=== PATIENT | female | born 1960 | race Caucasian/White ===

== ENCOUNTER → 2017-12-12 | Outpatient (CLI) | payer OTHER ==
--- NOTE | 2017-12-12 09:17 | US ---
EXAMINATION TYPE: US transvaginal DATE OF EXAM: 12/12/2017 COMPARISON: NONE CLINICAL HISTORY: Z78.0Asymptomatic menopause,N93.9Abnormal uterine and vaginal b; patient stated dominguez d May menses, then one this October lasting 16 days with heavy clotting; then off for couple days, a nother heavy menstrual cycle for 15 days; , C section x 2 TECHNIQUE: Transvaginal (TV) per order. Date of LMP: November 2017 EXAM MEASUREMENTS: Uterus: 8.5 x 5.1 x 4.8 cm Endometrial Stripe: 3.3 cm Right Ovary: 2.7 x 1.5 x 1.8 cm Left Ovary: 2.0 x 1.4 x 2.2 cm 1. Uterus: Anteverted; multiple Nabothian cysts in cervix with largest = 0.6 x 0.5 x 0.3cm 2. Endometrium: abnormally thickened, heterogeneous appearance with indiscreet borders; cyst noted u pper endometrium; possible oval mass within = 1.8 x 1.9 x 1.8cm. 3. Right Ovary: follicle noted = 0.95 x 0.54 x 0.63cm 4. Left Ovary: wnl Spectral, color and waveform doppler imaging shows good arterial and venous flow within the ovaries ;. 5. Bilateral Adnexa: wnl 6. Posterior cul-de-sac: wnl A few tiny nabothian cysts are seen in the cervix on initial images as well as near image 14. Heterog eneous anteverted uterus is present. Endometrium is not well seen but is suspected heterogeneously sl ightly hyperechoic and vascular. IMPRESSION: Suboptimal study, marked heterogeneity of uterus, suspected thickening of endometrium tho ugh it is poorly defined. Consider further investigation based on patient's clinical symptoms.
--- NOTE | 2017-12-14 11:59 | MM ---
Reason for exam: screening (asymptomatic). Last mammogram was performed 1 year and 7 months ago. History: Family history of breast cancer in mother. Physical Findings: A clinical breast exam by your physician is recommended on an annual basis and results should be correlated with mammographic findings. MG Screening Mammo w CAD Bilateral CC and MLO view(s) were taken. Prior study comparison: July 26, 2006, bilateral screening mammogram w/CAD. April 26, 2004, bilateral screening mammogram. The breast tissue is heterogeneously dense. This may lower the sensitivity of mammography. No significant changes when compared with prior studies. ASSESSMENT: Benign, BI-RAD 2 RECOMMENDATION: Routine screening mammogram of both breasts in 1 year.
== END | disposition home or self-care (01) ==
LOC: RADMAMWWP 07:48
PROVIDERS: ATTEND Family Medicine
DX: Z12.31 Encounter for screening mammogram for malignant neoplasm of breast (principal); R93.8 Abnormal findings on diagnostic imaging of other specified body structures; N93.9 Abnormal uterine and vaginal bleeding, unspecified; Z78.0 Asymptomatic menopausal state
CPT/HCPCS: 76830; 77067

== ENCOUNTER → 2018-01-23 | Outpatient (CLI) | payer OTHER ==
[2018-01-23 17:04] LABS: Basophils # (A) 0.1 k/uL (0-0.2); Basophils % (A) 1 %; Eosinophils # (A) 0.2 k/uL (0-0.7); Eosinophils % (A) 3 %; HCT 35.7 % (34.0-46.0); HGB 11.6 gm/dL (11.4-16.0); Lymphocytes # (A) 2.1 k/uL (1.0-4.8); Lymphocytes % (A) 25 %; MCHC 32.5 g/dL (31.0-37.0); MCV 86.2 fL (80.0-100.0); Mean Platelet Volume 7.3; Monocytes # (A) 0.4 k/uL (0-1.0); Monocytes % (A) 5 %; Neutrophils # (A) 5.2 k/uL (1.3-7.7); Neutrophils % (A) 63 %; Platelet Count 296 k/uL (150-450); RBC 4.15 m/uL (3.80-5.40); RDW 12.9 % (11.5-15.5); WBC 8.3 k/uL (3.8-10.6)
== END | disposition home or self-care (01) ==
LOC: LABPAT 16:03
PROVIDERS: ATTEND Obstetrics & Gynecology
DX: Z01.818 Encounter for other preprocedural examination (principal); Z01.812 Encounter for preprocedural laboratory examination
CPT/HCPCS: 36415; 85025; 93005

== ENCOUNTER 2018-01-30 10:46 | Day surgery (SDC) | payer OTHER ==
[2018-01-25 14:19] VITALS: BMI 46.0
--- NOTE | 2018-01-26 13:30 | P.HPOB ---
History of Present Illness H&P Date: 01/26/18 Chief Complaint: Postmenopausal bleeding She went is a 57-year-old female who has had 15-20 days of heavy bleeding over the last 4 months. She notes that she passes large clots and while she has not gone for an entire year without having a period her other symptoms are menopausal. She also has a grossly thickened endometrium measuring 3.3 cm. Risks/benefits of a D&C with hysteroscopy have discomfort been discussed with the patient in detail and all questions were answered for her prior to proceeding to the operating room. Past Medical History Past Medical History: Diabetes Mellitus, Hyperlipidemia, Hypertension, Thyroid Disorder Additional Past Medical History / Comment(s): RAPID HEART RATE-OCCASIONAL History of Any Multi-Drug Resistant Organisms: None Reported Past Surgical History: Section Additional Past Surgical History / Comment(s): C SECTON X 2 Past Anesthesia/Blood Transfusion Reactions: Motion Sickness Smoking Status: Never smoker - Past Family History Mother Family Medical History: No Reported History Medications and Allergies Home Medications Medication Instructions Recorded Confirmed Type ALPRAZolam [ALPRAZolam XR] 0.5 mg PO QID 01/25/18 01/25/18 History Atorvastatin Calcium [Lipitor] 10 mg PO HS 01/25/18 01/25/18 History Diltiazem HCl [Diltiazem ER] 240 mg PO 1000 01/25/18 01/25/18 History Gabapentin [Neurontin] 300 mg PO 1000 01/25/18 01/25/18 History HYDROcodone/APAP 10-325MG [[place] 1 tab PO Q8H PRN 01/25/18 01/25/18 History 10-325] Hydrochlorothiazide 25 mg PO BID 01/25/18 01/25/18 History Insulin Aspart [NovoLOG] 13 units SQ PC-TID 01/25/18 01/25/18 History Insulin Glargine,Hum.rec.anlog 22 unit SQ 1000,2200 01/25/18 01/25/18 History [Basaglar Kwikpen U-100] Levothyroxine Sodium [Synthroid] 88 mcg PO DAILY 01/25/18 01/25/18 History Losartan Potassium [Cozaar] 100 mg PO DAILY 01/25/18 01/25/18 History Vilazodone HCl [Viibryd] 10 mg PO DAILY 01/25/18 01/25/18 History diphenhydrAMINE [Benadryl] 25 mg PO BID PRN 01/25/18 01/25/18 History sitaGLIPtin PHOS/metFORMIN HCL 1 each PO BID 01/25/18 01/25/18 History [Janumet 50-500 mg Tablet] Allergies Allergy/AdvReac Type Severity Reaction Status Date / Time prednisone Allergy Anaphylaxis Verified 01/25/18 12:40 Quinolones Allergy Rash/Hives Verified 01/26/18 08:44 Exam Osteopathic Statement: *. No significant issues noted on an osteopathic structural exam other than those noted in the History and Physical/Consult. - OBG Physical Exam Breast: both: normal (no masses) Abdomen: Obese Abdomen: bowel sounds normal, no diffuse tenderness, no bruit present, no guarding noted, no hepatomegaly, no splenomegaly, no mass Vulva: both: normal Vagina: normal moisture, no discharge Cervix: no lesion, no discharge Uterus: normal size, normal contour Adnexa: both: normal Anus/Rectum: normal perianal skin, no rectal mass, no hemorrhoids, heme negative
[~2018-01-30 10:46] MED LIST: LACTATED RINGERS 1,000 ML IV SCH; MIDAZOLAM 2 MG/2 ML VIAL IV PRN; ONDANSETRON 4 MG/2 ML VIAL IVP ONE; Pre Op ABX Message 1 EACH MISC MISCELLANE ONE; SCOPOLAMINE 1.5MG/72HR PATCH TRANSDERM ONE; fentaNYL (PF) 50 MCG/ML 2 ML AMP IV PRN
[2018-01-30] MEDS ORDERED: LIDOCAINE 1% 20 ML VIAL (10MG/ML) FOR IV START INTRADERMA ONE (11:19)
[2018-01-30 11:28] LABS: Glucose,Whole Blood 274 mg/dL (75-99)
[2018-01-30] MEDS ORDERED: INSULIN ASPART 100 UNIT/ML 1 ML 10 ML VIAL SQ ONE ×2 (11:36→13:33)
[2018-01-30] MEDS ORDERED: PROPOFOL 10 MG/ML 20 ML VIAL IV ONE (12:34)
[2018-01-30] MEDS ORDERED: LIDOCAINE 1% INJ 10MG/ML (20 ML MDV) ONE (12:34)
[2018-01-30] MEDS ORDERED: fentaNYL (PF) 50 MCG/ML 2 ML AMP ONE (12:34)
[2018-01-30] MEDS ORDERED: SUCCINYLCHOLINE CHLORIDE VIAL 200 MG/10 ML VIAL IV ONE (12:34)
[2018-01-30] MEDS ORDERED: MIDAZOLAM 2 MG/2 ML VIAL ONE (12:34)
--- NOTE | 2018-01-30 13:00 | P.OP ---
Date of Procedure: 01/30/18 Preoperative Diagnosis: Dysfunctional uterine bleeding Postoperative Diagnosis: Same Procedure(s) Performed: D&C with hysteroscopy Anesthesia: OG Surgeon: Marlon Lopez Estimated Blood Loss (ml): 3 Pathology: other (Uterine curettings) Condition: stable Disposition: same day Operative Findings: No gross pathology was noted on hysteroscopy Description of Procedure: Patient was taken to the operating suite where a general anesthetic was found be adequate. She was prepped and draped in the normal sterile fashion and placed in dorsal lithotomy. Initially weighted speculum was inserted into the vagina and the anterior lip of the cervix was identified and grasped with an Allis clamp. Uterus was then sounded to 11 cm and cervix was dilated. Camera was inserted and no gross pathology was noted unclear why endometrium looks sick. Sharp curettings were then obtained all tissues collected, placed on Telfa, and then sent to pathology for evaluation. Sponge, lap, needle counts were all correct 2. All instruments were then removed and patient was taken to the recovery room in stable and satisfactory condition. Plan - Discharge Summary New Discharge Prescriptions: New Ibuprofen [Motrin] 600 mg PO Q6HR PRN #30 tab PRN Reason: Pain No Action diphenhydrAMINE [Benadryl] 25 mg PO BID PRN PRN Reason: Allergy Symptoms Vilazodone HCl [Viibryd] 10 mg PO DAILY Gabapentin [Neurontin] 300 mg PO 1000 Atorvastatin Calcium [Lipitor] 10 mg PO HS Losartan Potassium [Cozaar] 100 mg PO DAILY HYDROcodone/APAP 10-325MG [[place] 10-325] 1 tab PO Q8H PRN PRN Reason: Pain Hydrochlorothiazide 25 mg PO BID ALPRAZolam [ALPRAZolam XR] 0.5 mg PO QID Levothyroxine Sodium [Synthroid] 88 mcg PO DAILY Diltiazem HCl [Diltiazem ER] 240 mg PO 1000 sitaGLIPtin PHOS/metFORMIN HCL [Janumet 50-500 mg Tablet] 1 each PO BID Insulin Glargine,Hum.rec.anlog [Basaglar Kwikpen U-100] 22 unit SQ 1000,2200 Insulin Aspart [NovoLOG] 13 units SQ PC-TID Discharge Medication List ALPRAZolam [ALPRAZolam XR] 0.5 mg PO QID 01/25/18 [History] Atorvastatin Calcium [Lipitor] 10 mg PO HS 08/02/18 [History] Diltiazem HCl [Diltiazem ER] 240 mg PO 1000 01/25/18 [History] Gabapentin [Neurontin] 300 mg PO 1000 01/25/18 [History] HYDROcodone/APAP 10-325MG [[place] 10-325] 1 tab PO Q8H PRN 01/25/18 [History] Hydrochlorothiazide 25 mg PO BID 01/25/18 [History] Insulin Aspart [NovoLOG] 13 units SQ PC-TID 01/25/18 [History] Insulin Glargine,Hum.rec.anlog [Basaglar Kwikpen U-100] 22 unit SQ 1000,2200 08/13 [History] Levothyroxine Sodium [Synthroid] 88 mcg PO DAILY 01/25/18 [History] Losartan Potassium [Cozaar] 100 mg PO DAILY 01/25/18 [History] Vilazodone HCl [Viibryd] 10 mg PO DAILY 01/25/18 [History] diphenhydrAMINE [Benadryl] 25 mg PO BID PRN 01/25/18 [History] sitaGLIPtin PHOS/metFORMIN HCL [Janumet 50-500 mg Tablet] 1 each PO BID [History] Ibuprofen [Motrin] 600 mg PO Q6HR PRN #30 tab 01/30/18 [Rx] Follow up Appointment(s)/Referral(s): Marlon Lopez DO [Doctor of Osteopathic Medicine] - 1 Week Activity/Diet/Wound Care/Special Instructions: No heavy lifting today, limit stairs and driving and pelvic rest. If any high temperatures, heavy bleeding, or severe pain call my office Discharge Disposition: HOME SELF-CARE
[2018-01-30 13:17] VITALS: RESP 16; TEMP 96.9
[2018-01-30 13:30] LABS: Glucose,Whole Blood 215 mg/dL (75-99)
[2018-01-30] MEDS ORDERED: KETOROLAC 30 MG/ML 1 ML VIAL IVP ONE (13:39)
[2018-01-30 14:21] VITALS: BP 135/76; PULSE 60
== END 2018-01-30 14:54 | disposition home or self-care (01) ==
LOC: OR 10:46
PROVIDERS: ATTEND Obstetrics & Gynecology
DX: N85.00 Endometrial hyperplasia, unspecified (principal); N93.8 Other specified abnormal uterine and vaginal bleeding; E11.9 Type 2 diabetes mellitus without complications; I10 Essential (primary) hypertension; E78.5 Hyperlipidemia, unspecified; Z79.4 Long term (current) use of insulin; Z79.899 Other long term (current) drug therapy; Z88.8 Allergy status to other drugs, medicaments and biological substances; Z88.3 Allergy status to other anti-infective agents; F32.9 Major depressive disorder, single episode, unspecified; F41.0 Panic disorder [episodic paroxysmal anxiety]; K21.9 Gastro-esophageal reflux disease without esophagitis; E07.9 Disorder of thyroid, unspecified
CPT/HCPCS: 81025; 88305; 58558; J2250; J0330; J2405; J2001; J3010; J1885; J2704

== ENCOUNTER → 2018-02-20 | Outpatient (CLI) | payer OTHER ==
--- NOTE | 2018-02-20 17:46 | XR ---
EXAMINATION TYPE: XR chest 2V DATE OF EXAM: 02/20/2018 COMPARISON: NONE HISTORY: Uterine cancer TECHNIQUE: Frontal and lateral views of the chest are obtained. FINDINGS: There is no heart failure nor confluent pneumonic infiltrate. Costophrenic angles are yecenia r. Heart size is normal. Bony thorax appears intact. IMPRESSION: No active cardiopulmonary disease.
--- NOTE | 2018-02-21 08:54 | CT ---
EXAMINATION TYPE: CT abdomen pelvis w con DATE OF EXAM: 02/20/2018 COMPARISON: None HISTORY: Pelvic cramping. per patient preop for hysterectomy CT DLP: 1752 mGycm CONTRAST: CT scan of the abdomen and pelvis is performed with Oral Contrast and with IV Contrast, patient injec ángel with 80 mL of Isovue 300. FINDINGS: LUNG BASES-: No visible nodule. No infiltrate. LIVER/GB: Large calcified gallstone identified within the gallbladder lumen. Lateral segment left h epatic lobe cyst noted measuring 1.4 cm. No additional hepatic lesions noted. Biliary tree is of norm al caliber. PANCREAS: No inflammation. No distinct mass. SPLEEN: No splenic enlargement. No lesion seen. ADRENALS: Hypoattenuating right adrenal nodule measures 1.8 cm and is compatible with adenoma. Left a drenal gland is unremarkable. No thickening. KIDNEYS/BLADDER: No hydronephrosis. No nephrolithiasis. No distinct solid renal mass. Parapelvic renal cysts are noted. Urinary bladder grossly unremarkable. BOWEL: Appendix poorly visualized. Normal bowel caliber. No inflammation. GENITAL ORGANS: No gross abnormality. LYMPH NODES: No greater than 1cm abdominal or pelvic lymph nodes are appreciated. AORTA: No significant abnormality. OSSEOUS STRUCTURES: No significant abnormality is seen. OTHER: No significant additional abnormality is seen. IMPRESSION: 1. Cholelithiasis. 2. Hepatic cyst. 3. Adrenal adenoma.
== END | disposition home or self-care (01) ==
LOC: RADCTMAIN 16:41
PROVIDERS: ATTEND Obstetrics & Gynecology
DX: D35.01 Benign neoplasm of right adrenal gland (principal); K80.20 Calculus of gallbladder without cholecystitis without obstruction; K76.89 Other specified diseases of liver; N85.00 Endometrial hyperplasia, unspecified
CPT/HCPCS: 82565; 84520; 71046; 74177; 36415; Q9967

== ENCOUNTER → 2019-04-18 | Outpatient (CLI) | payer OTHER ==
--- NOTE | 2019-04-19 13:30 | MM ---
Reason for exam: screening (asymptomatic). Last mammogram was performed 1 year and 4 months ago. History: Patient is postmenopausal and history of other cancer. Family history of breast cancer in mother. Physical Findings: A clinical breast exam by your physician is recommended on an annual basis and results should be correlated with mammographic findings. MG Screening Mammo w CAD Bilateral CC and MLO view(s) were taken. Prior study comparison: December 12, 2017, bilateral MG screening mammo w CAD. May 21, 2016, mammogram, performed at [facility]. The breast tissue is heterogeneously dense. This may lower the sensitivity of mammography. There are benign appearing round calcifications bilaterally. There is chronic nodularity bilaterally. There is no discrete abnormality. ASSESSMENT: Benign, BI-RAD 2 RECOMMENDATION: Routine screening mammogram of both breasts in 1 year.
== END | disposition home or self-care (01) ==
LOC: RADMAMWWP 12:34
PROVIDERS: ATTEND Family Medicine
DX: Z12.31 Encounter for screening mammogram for malignant neoplasm of breast (principal)
CPT/HCPCS: 77067

== ENCOUNTER → 2020-07-31 | Outpatient (CLI) | payer OTHER ==
--- NOTE | 2020-08-04 10:31 | MM ---
Reason for exam: screening (asymptomatic). Last mammogram was performed 1 year and 3 months ago. History: Patient is postmenopausal and history of other cancer. Family history of breast cancer in mother. Physical Findings: A clinical breast exam by your physician is recommended on an annual basis and results should be correlated with mammographic findings. MG 3D Screening Mammo W/Cad Bilateral CC and MLO view(s) were taken. Prior study comparison: April 18, 2019, bilateral MG screening mammo w CAD. December 12, 2017, bilateral MG screening mammo w CAD. There are scattered fibroglandular densities. There is chronic nodularity bilaterally. No significant changes when compared with prior studies. ASSESSMENT: Benign, BI-RAD 2 RECOMMENDATION: Routine screening mammogram of both breasts in 1 year.
== END | disposition home or self-care (01) ==
LOC: RADMAMWWP 11:54
PROVIDERS: ATTEND Family Medicine
DX: Z12.31 Encounter for screening mammogram for malignant neoplasm of breast (principal)
CPT/HCPCS: 77063; 77067